=== PATIENT | female | born 1970 | race Caucasian/White ===

== ENCOUNTER 2023-09-05 14:31 | Outpatient (OUT) | payer OTHER, SELFPAY ==
--- NOTE | 2023-09-05 | XR_ITS ---
The [address] [address] Patient Name: RICKI BERG MRN: [id number] date: 1970 Sex: F Assigned Patient Location: Current Patient Location: Accession/Order Number: [id number] Exam Date: 09/05/2023 14:50 Report Date: 09/07/2023 04:59 At the request of: BROOKE PRADHAN Procedure: XR ankle RT min 3V EXAMINATION: XR foot DAMIÁN min 3V, XR ankle RT min 3V HISTORY: BILATERAL FOOT PAIN , right ankle pain COMPARISON: No relevant comparison available. FINDINGS: RIGHT FINDINGS: BONES: Prior prosthetic replacement of the talus; no appreciable hardware fracture or abnormal alignment. Separate corticated ossifications distal to the medial and lateral malleolus favoring sequela of remote trauma. Slight narrowing of the first metatarsophalangeal joint. SOFT TISSUES: No visible soft tissue swelling. OTHER: Negative. LEFT FINDINGS: BONES: Slight narrowing of the first metacarpal phalangeal joint. No significant arthropathy or acute abnormality. SOFT TISSUES: No visible soft tissue swelling. OTHER: Negative. XR/XR ankle RT min 3V IMPRESSION: RIGHT CONCLUSION: 1. 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 2. Minimal degenerative changes. No specific findings to account for patient's symptoms. LEFT CONCLUSION: 1. Minimal degenerative changes. No acute or specific findings to account for patient's symptoms. Electronically authenticated by: RAJIV PACE Date: 09/07/2023 04:59
--- NOTE | 2023-09-05 | XR_ITS ---
The [address] [address] Patient Name: RICKI BERG MRN: [id number] date: 1970 Sex: F Assigned Patient Location: Current Patient Location: Accession/Order Number: [id number] Exam Date: 09/05/2023 14:33 Report Date: 09/07/2023 04:59 At the request of: BROOKE PRADHAN Procedure: XR foot DAMIÁN min 3V EXAMINATION: XR foot DAMIÁN min 3V, XR ankle RT min 3V HISTORY: BILATERAL FOOT PAIN , right ankle pain COMPARISON: No relevant comparison available. FINDINGS: RIGHT FINDINGS: BONES: Prior prosthetic replacement of the talus; no appreciable hardware fracture or abnormal alignment. Separate corticated ossifications distal to the medial and lateral malleolus favoring sequela of remote trauma. Slight narrowing of the first metatarsophalangeal joint. SOFT TISSUES: No visible soft tissue swelling. OTHER: Negative. LEFT FINDINGS: BONES: Slight narrowing of the first metacarpal phalangeal joint. No significant arthropathy or acute abnormality. SOFT TISSUES: No visible soft tissue swelling. OTHER: Negative. XR/XR foot DAMIÁN min 3V IMPRESSION: RIGHT CONCLUSION: 1. 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 2. Minimal degenerative changes. No specific findings to account for patient's symptoms. LEFT CONCLUSION: 1. Minimal degenerative changes. No acute or specific findings to account for patient's symptoms. Electronically authenticated by: RAJIV PACE Date: 09/07/2023 04:59
== END 2023-09-05 14:32 | disposition home or self-care (01) ==
LOC: EC 14:31
PROVIDERS: Visit Provider Podiatrist Foot & Ankle Surgery
DX: M79.671 Pain in right foot (principal); M79.672 Pain in left foot; M25.571 Pain in right ankle and joints of right foot; Z96.661 Presence of right artificial ankle joint
CPT/HCPCS: 73610; 73630

== ENCOUNTER 2023-09-25 09:33 | Outpatient (OUT) | payer OTHER, SELFPAY ==
--- NOTE | 2023-09-25 09:36 | CT_ITS ---
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 Dose reduction techniques were achieved by using automated exposure control and/or adjustment of mA and/or kV according to patient size and/or use of iterative reconstruction technique. FINDINGS: BONES: [Prosthetic replacement of the talus without evidence of hardware fracture or abnormal alignment. No bone fracture, dislocation, or significant articular surface irregularity. Small subchondral cyst along the anterior articular margin of the tibial plafond. SOFT TISSUES: Negative. No visible soft tissue swelling. EFFUSION: None visible. OTHER: Negative. CT/CT ankle RT wo con IMPRESSION: 1. Stable surgical changes without appreciable acute or overtly suspicious abnormality. Electronically authenticated by: RAJIV PACE Date: 09/25/2023 15:15
== END 2023-09-25 09:34 | disposition home or self-care (01) ==
LOC: CT 09:33
PROVIDERS: Visit Provider Podiatrist Foot & Ankle Surgery
DX: M87.071 Idiopathic aseptic necrosis of right ankle (principal)
CPT/HCPCS: 73700